=== PATIENT | male | born 1995 | race African-American/Black ===

== ENCOUNTER 2017-07-02 18:43 | Emergency (ER) | payer BC ==
[~2017-07-02] VITALS: Ht 170.2 cm; Wt 58.5 kg
[2017-07-02 20:44] VITALS: BP 140/81
== END 2017-07-02 20:44 | disposition home or self-care (01) ==
LOC: EME 18:43
DX: A63.0 Anogenital (venereal) warts (principal); F32.9 Major depressive disorder, single episode, unspecified; F17.200 Nicotine dependence, unspecified, uncomplicated
CPT/HCPCS: 99281; 99283

== ENCOUNTER 2017-07-24 09:28 | Emergency (ER) | payer BC ==
[~2017-07-24] VITALS: Ht 170.2 cm; Wt 58.4 kg
[2017-07-24 09:33] VITALS: BP 119/74
[2017-07-24] MEDS ORDERED: ULTRAM50 MG PO (09:43)
[2017-07-24] MEDS ORDERED: FLEXERIL10 MG PO (09:43)
== END 2017-07-24 10:00 | disposition home or self-care (01) ==
LOC: EME 09:28
DX: S39.012A Strain of muscle, fascia and tendon of lower back, initial encounter (principal); X50.9XXA Other and unspecified overexertion or strenuous movements or postures, initial encounter; Z88.0 Allergy status to penicillin; F17.200 Nicotine dependence, unspecified, uncomplicated
CPT/HCPCS: 99281; 99283